=== PATIENT | female | born 1940 | race Caucasian/White ===

== ENCOUNTER 2019-06-23 20:57 | Inpatient (IN) | payer MEDICARE, MEDICAID ==
[~2019-06-23] VITALS: Ht 160 cm; Wt 29.8 kg
[~2019-06-23 20:57] MED LIST: LISI2.5T2 PO
[2019-06-23] MEDS ORDERED: normal saline 1000ML IV soln IVB ONE (21:15)
[2019-06-23 21:48] LABS: EOSINOPHILS # (AUTO) 0.1 X10'3 (0-0.9); EOSINOPHILS % (AUTO) 0.9 % (0-6); HEMATOCRIT 37.1 % (35.0-45.0); LYMPHOCYTES # (AUTO) 0.8 X10'3 (1.1-4.8); MONOCYTES # (AUTO) 0.5 X10'3 (0-0.9); RED BLOOD COUNT 3.83 X10'6 (4.20-5.60); WHITE BLOOD COUNT 7.9 X10'3 (4.5-11.0)
[2019-06-23 21:50] LABS: BASOPHILS % (AUTO) 0.6 % (0-1); HEMOGLOBIN 12.3 g/dl (12.0-16.0); LYMPHOCYTES % (AUTO) 10.5 % (21-51); MEAN CORPUSCULAR HGB CONC 33.1 g/dL (33.0-36.5); MEAN CORPUSCULAR VOLUME 96.8 FL (78-98); MONOCYTES % (AUTO) 6.2 % (2-12); NEUTROPHILS # (AUTO) 6.4 X10'3 (1.8-7.7); NEUTROPHILS % (AUTO) 81.8 % (42-75); RED CELL DISTRIBUTION WIDTH 13.8 % (11.5-14.5)
[2019-06-23 22:04] LABS: ALANINE AMINOTRANSFERASE 20 U/L (12-78); ALBUMIN 2.2 G/DL (3.4-5.0); ALBUMIN/GLOBULIN RATIO 0.7 (1.1-1.5); ALKALINE PHOSPHATASE 102 IU/L (46-116); ANION GAP 4 (8-16); ASPARTATE AMINO TRANSFERASE 20 U/L (10-37); BILIRUBIN,TOTAL 0.2 MG/DL (0.1-1.0); BLOOD UREA NITROGEN 30 MG/DL (7-18); BUN/CREATININE RATIO 25.9 (6.6-38.0); CALCIUM 8.6 MG/DL (8.5-10.1); CHLORIDE 108 MMOL/L (99-107); CREATININE 1.16 MG/DL (0.40-0.90); GLUCOSE 104 MG/DL (70-104); MAGNESIUM 2.3 MG/DL (1.5-2.4); POTASSIUM 4.1 MMOL/L (3.5-5.1); SODIUM 146 MMOL/L (135-145); TOTAL CARBON DIOXIDE 34.1 MMOL/L (24-32); TOTAL PROTEIN 5.4 G/DL (6.4-8.2); eGFR 45 ML/MIN
[2019-06-23 22:07] LABS: PLATELET COUNT 172 X10'3 (140-440)
[2019-06-23 22:10] LABS: PLATELET ESTIMATE NORMAL
[2019-06-23 22:11] LABS: LARGE PLATELETS MANY
[2019-06-23] MEDS ORDERED: CefTRIAXone/D5W-Rocephin 1gm 50 ML IV ONE (22:15)
[2019-06-24] MEDS ORDERED: acetaminophen 325mg tablet PO PRN (00:25)
[2019-06-24] MEDS ORDERED: mag hydrox/Alum hydrox/simeth 30ml oral suspension PO PRN (00:25)
[2019-06-24] MEDS ORDERED: magnesium hydroxide 30ml (MOM) UD suspension PO PRN (00:25)
[2019-06-24] MEDS ORDERED: ondansetron/PF 4mg/2ml inj IV PRN (00:25)
[2019-06-24 01:10] LABS: CLARITY,URINE SLIGHTLY CLOUDY (Clear); COLOR,URINE YELLOW (Yellow); GLUCOSE, URINE NEGATIVE (Neg); KETONES,URINE NEGATIVE (Neg); LEUKOCYTE ESTERASE ,URINE SMALL (Neg); NITRITES, URINE NEGATIVE (Neg); OCCULT BLOOD,URINE MODERATE (Neg); PROTEIN,URINE 100 mg/dl (Neg); UROBILINOGEN,URINE 0.2 E.U/dL (0.2-1.0)
[2019-06-24 01:15] LABS: UA COLLECTION TYPE OTHER
[2019-06-24 01:20] LABS: BACTERIA,URINE NONE SEEN /HPF (Neg); SQUAMOUS EPITHELIAL CELL,UR FEW /LPF (FEW)
--- NOTE | 2019-06-24 02:00 | NUR ---
brought to room [facility] via [facility], transferred to bed with ease. pt a&o, moves with ease in bed. received report from LEIA MEANS. Addendum: 06/24/19 at 0315 by Deion Gallegos RN Amended: Links added.
[2019-06-24 02:15] VITALS: BP 138/82
[2019-06-24] MEDS: dextrose 5%-1/2 normal saline 1,000 ML IV SCH ×3 (02:42→23:09)
--- NOTE | 2019-06-24 03:00 | NUR ---
Pt moves easily, turns freq side to side. Addendum: 06/24/19 at 0315 by Deion Gallegos RN Amended: Links added.
[2019-06-24 06:00] VITALS: BP 141/73
--- NOTE | 2019-06-24 06:29 | NUR ---
Problems reprioritized. Patient report given, questions answered & plan of care reviewed with RN. pt hanh in [place] with PT. Addendum: 06/24/19 at 0629 by Deion Gallegos RN Amended: Links added.
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
--- NOTE | 2019-06-24 14:45 | NUR ---
received call from family member Honey, pt niece. She was concerned saying, "I hope you people aren't feeding her food! She hasn't eaten any solid food for a year!" I attempted to explain to her that the pt had had a speech therapy eval and was put on pureed foods and has been offered ensure drinks, but the family member kept interrupting me and using foul language. Honey stated that the patient was supposed to have a cardiac workup for a "murmur" that the [facility] MD was concerned about. I explained that to the best of my knowledge her admit was related to malnutrition and concern for chemical imbalance related to that. Honey demanded that I have the hospitalist call her back (she was also upset that the [facility] MD was not overseeing her care in the hospital), however she hung up before I could get the number to call back. I spoke to [facility] art display maker and obtained the contact info
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
[2019-06-24 17:00] VITALS: BP 124/58
[2019-06-24] MEDS ORDERED: lactose-reduced food (Ensure Enlive) - 237ml bottle PO SCH (18:00)
--- NOTE | 2019-06-24 19:13 | NUR ---
Patient in room [facility]. I have received report from Julieth MEANS and had the opportunity to ask questions and assume patient care.
[2019-06-24] MEDS: nystatin 15 GM powder TP SCH (20:56)
[2019-06-24 22:00] VITALS: BP 150/79
[2019-06-25 05:13] LABS: BASOPHILS # (AUTO) 0.1 X10'3 (0-0.2); BASOPHILS % (AUTO) 1.2 % (0-1); EOSINOPHILS # (AUTO) 0.1 X10'3 (0-0.9); EOSINOPHILS % (AUTO) 1.6 % (0-6); HEMATOCRIT 31.3 % (35.0-45.0); HEMOGLOBIN 10.4 g/dl (12.0-16.0); LYMPHOCYTES # (AUTO) 0.8 X10'3 (1.1-4.8); MEAN CORPUSCULAR HEMOGLOBIN 32.2 PG (27.0-31.0); MEAN CORPUSCULAR HGB CONC 33.3 g/dL (33.0-36.5); MEAN CORPUSCULAR VOLUME 96.8 FL (78-98); MEAN PLATELET VOLUME 12.1 FL (7.4-10.4); MONOCYTES # (AUTO) 0.4 X10'3 (0-0.9); MONOCYTES % (AUTO) 5.9 % (2-12); NEUTROPHILS # (AUTO) 5.5 X10'3 (1.8-7.7); NEUTROPHILS % (AUTO) 80.3 % (42-75); PLATELET COUNT 135 X10'3 (140-440); RED BLOOD COUNT 3.24 X10'6 (4.20-5.60); RED CELL DISTRIBUTION WIDTH 14.3 % (11.5-14.5); WHITE BLOOD COUNT 6.9 X10'3 (4.5-11.0)
[2019-06-25 05:42] LABS: ALANINE AMINOTRANSFERASE 17 U/L (12-78); ALBUMIN 1.7 G/DL (3.4-5.0); ALBUMIN/GLOBULIN RATIO 0.6 (1.1-1.5); ALKALINE PHOSPHATASE 69 IU/L (46-116); ANION GAP 6 (8-16); ASPARTATE AMINO TRANSFERASE 27 U/L (10-37); BILIRUBIN,TOTAL 0.3 MG/DL (0.1-1.0); BLOOD UREA NITROGEN 25 MG/DL (7-18); BUN/CREATININE RATIO 25.3 (6.6-38.0); CALCIUM 8.3 MG/DL (8.5-10.1); CHLORIDE 114 MMOL/L (99-107); CREATININE 0.99 MG/DL (0.40-0.90); GLUCOSE 89 MG/DL (70-104); SODIUM 148 MMOL/L (135-145); TOTAL CARBON DIOXIDE 28.2 MMOL/L (24-32); TOTAL PROTEIN 4.5 G/DL (6.4-8.2); eGFR 54 ML/MIN
[2019-06-25 06:00] VITALS: BP 154/64
--- NOTE | 2019-06-25 06:32 | NUR ---
Problems reprioritized. Patient report given, questions answered & plan of care reviewed with BREANA MEANS.
[2019-06-25 06:34] LABS: LARGE PLATELETS MODERATE; PLATELET ESTIMATE DECREASED
[2019-06-25] MEDS ORDERED: multivitamins, therapeutics tablet PO SCH (08:00)
[2019-06-25] MEDS: nystatin 15 GM powder TP SCH (08:10)
[2019-06-25 10:00] VITALS: BP 139/93
--- NOTE | 2019-06-25 12:49 | NUR ---
Called report to Meeta MEANS at [facility].
--- NOTE | 2019-06-25 14:28 | NUR ---
Patient stable for discharge. Belongings gathered and sent with patient to [facility]. PIV removed cannula intact. Wound care and pictures taken. Family made aware of transfer.
== END 2019-06-25 14:15 | DRG 682 ==
LOC: ER 20:58 → ED HOLD 06-24 00:22 → ORTHO 4S 06-24 02:00
PROVIDERS: ADMIT Internal Medicine; ATTEND Internal Medicine
DX: N17.9 Acute kidney failure, unspecified (principal); E43 Unspecified severe protein-calorie malnutrition; L03.311 Cellulitis of abdominal wall; E87.0 Hyperosmolality and hypernatremia; Q61.3 Polycystic kidney, unspecified; Z68.1 Body mass index [BMI] 19.9 or less, adult; R62.7 Adult failure to thrive; E86.0 Dehydration; G24.3 Spasmodic torticollis; I12.9 Hypertensive chronic kidney disease with stage 1 through stage 4 chronic kidney disease, or unspecified chronic kidney disease; M41.9 Scoliosis, unspecified; N18.9 Chronic kidney disease, unspecified; Z74.01 Bed confinement status; Z90.12 Acquired absence of left breast and nipple; Z99.3 Dependence on wheelchair; Z79.899 Other long term (current) drug therapy
CPT/HCPCS: 36415; 80053; 81001; 83605; 83735; 84145; 85025; 87040; 87077; 87081; 87088; 87186; 92508; 92616; 96361; 96365; 97161; 97530; 99285; G0378; J0696; J7030

== ENCOUNTER 2019-10-28 23:41 | Emergency (ER) | payer MEDICARE, MEDICAID ==
[~2019-10-28] VITALS: Ht 162.6 cm; Wt 36.4 kg
[2019-10-28 23:43] VITALS: BP 87/54
== END 2019-10-29 00:58 ==
LOC: ER 23:42
DX: Z43.1 Encounter for attention to gastrostomy (principal); I10 Essential (primary) hypertension; Z98.890 Other specified postprocedural states; Z79.899 Other long term (current) drug therapy
CPT/HCPCS: 99285

== ENCOUNTER 2019-11-04 11:49 | Day surgery (SDC) | payer MEDICARE, MEDICAID ==
[~2019-11-04] VITALS: Ht 160 cm; Wt 65.9 kg
[2019-11-04] MEDS ORDERED: TRAM50TA2 PO (12:04)
[2019-11-04] MEDS ORDERED: THIA50TA10 PO (12:04)
[2019-11-04] MEDS ORDERED: MIRT15TA PO (12:04)
[2019-11-04] MEDS ORDERED: MULT-1074 PO (12:04)
[2019-11-04] MEDS ORDERED: LORA-269 PO (12:04)
--- NOTE | 2019-11-04 12:10 | NUR ---
Called , spoke to Patricia, clinical social work aide. Pt signs for herself at facility, however at this time pt is not oriented to purpose, place or time. Attempted to call niece to obtain consent, message left.
--- NOTE | 2019-11-04 12:19 | NUR ---
Dr. Freeman pace. stated that consent for this procedure is implied and a signature is not needed.
[2019-11-04 12:30] VITALS: BP 114/51
[2019-11-04] MEDS ORDERED: iohexol 300 MG/1 ML 50ml polymer ONE (12:47)
--- NOTE | 2019-11-04 13:15 | NUR ---
Procedure performed at bedside by angio RN & natural gas trader. No new tube placed, suture previously placed removed. Contrast injected, x-ray obtained. Dr. Millard determined existing G tube in proper location.
[2019-11-04 13:45] VITALS: BP 106/58
[2019-11-04] MEDS ORDERED: zinc oxide ointment 30gm tube TP SCH (20:00)
== END 2019-11-04 14:00 ==
LOC: SSTAY O 11:49
PROVIDERS: ATTEND Radiology Vascular & Interventional Radiology
DX: K94.29 Other complications of gastrostomy (principal); Z79.899 Other long term (current) drug therapy; Y83.3 Surgical operation with formation of external stoma as the cause of abnormal reaction of the patient, or of later complication, without mention of misadventure at the time of the procedure; Y92.89 Other specified places as the place of occurrence of the external cause
CPT/HCPCS: 49465; 74018; Q9967

== ENCOUNTER 2019-11-25 14:23 | Emergency (ER) | payer MEDICARE, MEDICAID ==
[~2019-11-25] VITALS: Ht 149.9 cm; Wt 27.3 kg
[~2019-11-25 14:23] MED LIST changes: +LORA-269 PO; +MIRT15TA PO; +MULT-1074 PO; +THIA50TA10 PO; +TRAM50TA2 PO
[2019-11-25 16:28] VITALS: BP 145/80
--- NOTE | 2019-11-25 16:30 | NUR ---
pt refused lab draws, moved to bed 13.
--- NOTE | 2019-11-25 16:39 | NUR ---
pt to CT
--- NOTE | 2019-11-25 16:48 | NUR ---
pt refused CT once outside stating she wants to go home.
--- NOTE | 2019-11-25 16:49 | NUR ---
call to Honey pt caregiver and stated spoke with dr perla and only lives 4 blocks away and will be right down to help pt.
--- NOTE | 2019-11-25 17:21 | NUR ---
TO CT VIA [facility]
[2019-11-25 17:26] LABS: BASOPHILS % (AUTO) 0.2 % (0-1); EOSINOPHILS % (AUTO) 0.4 % (0-6); HEMATOCRIT 33.4 % (35.0-45.0); LYMPHOCYTES # (AUTO) 0.6 X10'3 (1.1-4.8); LYMPHOCYTES % (AUTO) 6.3 % (21-51); MEAN CORPUSCULAR HEMOGLOBIN 30.4 PG (27.0-31.0); MEAN CORPUSCULAR HGB CONC 32.9 g/dL (33.0-36.5); MEAN CORPUSCULAR VOLUME 92.3 FL (78-98); MEAN PLATELET VOLUME 11.7 FL (7.4-10.4); MONOCYTES # (AUTO) 0.5 X10'3 (0-0.9); MONOCYTES % (AUTO) 5.9 % (2-12); NEUTROPHILS # (AUTO) 8.1 X10'3 (1.8-7.7); NEUTROPHILS % (AUTO) 87.2 % (42-75); PLATELET COUNT 220 X10'3 (140-440); RED BLOOD COUNT 3.62 X10'6 (4.20-5.60); RED CELL DISTRIBUTION WIDTH 13.6 % (11.5-14.5); WHITE BLOOD COUNT 9.3 X10'3 (4.5-11.0)
[2019-11-25 17:49] LABS: ALANINE AMINOTRANSFERASE 25 U/L (12-78); ALBUMIN 2.6 G/DL (3.4-5.0); ALBUMIN/GLOBULIN RATIO 0.7 (1.1-1.5); ALKALINE PHOSPHATASE 85 IU/L (46-116); ANION GAP 7 (8-16); ASPARTATE AMINO TRANSFERASE 24 U/L (10-37); BILIRUBIN,TOTAL 0.3 MG/DL (0.1-1.0); BLOOD UREA NITROGEN 74 MG/DL (7-18); BUN/CREATININE RATIO 53.2 (6.6-38.0); CALCIUM 8.8 MG/DL (8.5-10.1); CHLORIDE 102 MMOL/L (99-107); CREATININE 1.39 MG/DL (0.40-0.90); GLUCOSE 103 MG/DL (70-104); LIPASE 399 U/L (73-393); POTASSIUM 3.9 MMOL/L (3.5-5.1); SODIUM 142 MMOL/L (135-145); TOTAL CARBON DIOXIDE 32.6 MMOL/L (24-32); TOTAL PROTEIN 6.5 G/DL (6.4-8.2); eGFR 36 ML/MIN
[2019-11-25 18:03] LABS: GIANT PLATELET FEW; LARGE PLATELETS MODERATE
[2019-11-25 18:04] LABS: PLATELET ESTIMATE NORMAL
[2019-11-25] MEDS ORDERED: LIDOcaine Viscous 15ml cup TP ONE (18:25)
== END 2019-11-25 18:51 | disposition home or self-care (01) ==
LOC: ER 14:23
DX: K94.23 Gastrostomy malfunction (principal); I10 Essential (primary) hypertension; Z79.899 Other long term (current) drug therapy
CPT/HCPCS: 36415; 74176; 80053; 83605; 83690; 84145; 85025; 99284

== ENCOUNTER 2019-12-17 18:30 | Emergency (ER) | payer MEDICARE, MEDICAID ==
[~2019-12-17] VITALS: Ht 162.6 cm; Wt 27.0 kg
[2019-12-17 18:31] VITALS: BP 147/82
== END 2019-12-17 20:46 | disposition home or self-care (01) ==
LOC: ER 18:30
DX: R10.9 Unspecified abdominal pain (principal); I10 Essential (primary) hypertension; R91.1 Solitary pulmonary nodule; Z00.00 Encounter for general adult medical examination without abnormal findings; Z79.899 Other long term (current) drug therapy
CPT/HCPCS: 99281

== ENCOUNTER 2020-01-02 15:41 | Emergency (ER) | payer MEDICARE, MEDICAID ==
[~2020-01-02] VITALS: Ht 162.6 cm; Wt 31.3 kg
[~2020-01-02 15:41] MED LIST changes: +MIRT-116 PO; -MIRT15TA PO
[2020-01-02] MEDS: diatr meglu/diatrizoate 30ml oral sol.-(3 dose) bottle PO SCH ×4 (16:30→17:49)
[2020-01-02 16:50] LABS: BASOPHILS % (AUTO) 0.4 % (0-1); EOSINOPHILS % (AUTO) 0.3 % (0-6); HEMATOCRIT 34.2 % (35.0-45.0); HEMOGLOBIN 11.5 g/dl (12.0-16.0); LYMPHOCYTES # (AUTO) 0.8 X10'3 (1.1-4.8); LYMPHOCYTES % (AUTO) 7.1 % (21-51); MEAN CORPUSCULAR HEMOGLOBIN 31.7 PG (27.0-31.0); MEAN CORPUSCULAR HGB CONC 33.6 g/dL (33.0-36.5); MEAN CORPUSCULAR VOLUME 94.5 FL (78-98); MEAN PLATELET VOLUME 11.9 FL (7.4-10.4); MONOCYTES # (AUTO) 0.6 X10'3 (0-0.9); MONOCYTES % (AUTO) 5.6 % (2-12); NEUTROPHILS # (AUTO) 9.2 X10'3 (1.8-7.7); NEUTROPHILS % (AUTO) 86.6 % (42-75); PLATELET COUNT 193 X10'3 (140-440); RED BLOOD COUNT 3.62 X10'6 (4.20-5.60); RED CELL DISTRIBUTION WIDTH 15.1 % (11.5-14.5); WHITE BLOOD COUNT 10.7 X10'3 (4.5-11.0)
[2020-01-02 17:02] LABS: ALANINE AMINOTRANSFERASE 25 U/L (12-78); ALBUMIN 2.4 G/DL (3.4-5.0); ALBUMIN/GLOBULIN RATIO 0.7 (1.1-1.5); ALKALINE PHOSPHATASE 81 IU/L (46-116); ANION GAP 4 (8-16); ASPARTATE AMINO TRANSFERASE 30 U/L (10-37); BILIRUBIN,TOTAL 0.4 MG/DL (0.1-1.0); BLOOD UREA NITROGEN 59 MG/DL (7-18); BUN/CREATININE RATIO 36.2 (6.6-38.0); CALCIUM 8.3 MG/DL (8.5-10.1); CHLORIDE 103 MMOL/L (99-107); CREATININE 1.63 MG/DL (0.40-0.90); GLUCOSE 122 MG/DL (70-104); LIPASE 258 U/L (73-393); SODIUM 140 MMOL/L (135-145); TOTAL CARBON DIOXIDE 33.3 MMOL/L (24-32); TOTAL PROTEIN 5.7 G/DL (6.4-8.2); eGFR 30 ML/MIN
--- NOTE | 2020-01-02 17:31 | NUR ---
FILI CHAVEZ TO ADMINISTER GASTROGRAFIN IN CT.
[2020-01-02] MEDS ORDERED: ringers solution, lactated 1000ml IV soln IV ONE (18:30)
--- NOTE | 2020-01-02 19:05 | NUR ---
AWAITING READ OF CT, PT UPDATED. PTS NEICE UPDATED OR STATUS THAT WE ARE WAITING CT AND TO GIVEN PT 1 LITER OF FLUIDS. JADEN: GHULAM [phone] CELL. 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 PT CALLING OUT "HELP ME" AND RESTATING "I WANT TO GO HOME". REITERATED PLAN TO HER. CURRENT VSS.
--- NOTE | 2020-01-02 20:23 | NUR ---
Patient resting. Small blood pressure cuff applied to left arm. Patient given blanket and helped to position of comfort.
--- NOTE | 2020-01-02 20:27 | NUR ---
Patient states she does not want to be here. Patient refused cleaning wound and taking of temperature. Patient requests to be sent home.
--- NOTE | 2020-01-02 20:39 | NUR ---
THIEN BARLOW UPDATED ON PTS REFUSAL OF CARE AND DESIRE TO GO HOME. PA TALKING TO PTS GHULAM STANLEY NOW IN THE ER LOBBY.
[2020-01-02] MEDS ORDERED: CEPH250T PO (21:08)
[2020-01-02 21:17] VITALS: BP 140/68
== END 2020-01-02 21:21 | disposition home or self-care (01) ==
LOC: ER 15:42
DX: L03.311 Cellulitis of abdominal wall (principal); K94.23 Gastrostomy malfunction; I10 Essential (primary) hypertension; K80.50 Calculus of bile duct without cholangitis or cholecystitis without obstruction; Z79.899 Other long term (current) drug therapy
CPT/HCPCS: 43762; 71045; 74018; 74176; 80053; 83690; 85025; 85610; 96360; 99285; J7120